=== PATIENT | male | born 1945 | race Caucasian/White ===

== ENCOUNTER 2020-02-05 09:45 | Day surgery (SDC) | payer MEDICARE ==
[~2020-02-05] VITALS: Ht 177.8 cm; Wt 122.7 kg
[2020-02-05 09:55] VITALS: BP 136/67
[2020-02-05] MEDS ORDERED: MIDAZolam 5mg/5ml vial ONE (10:16)
[2020-02-05] MEDS ORDERED: fentaNYL/PF 50MCG/1 ML 2ML syringe ONE (10:16)
[2020-02-05] MEDS ORDERED: WARF6TAB49 PO (10:35)
[2020-02-05] MEDS ORDERED: LISI1TAB51 PO (10:36)
[2020-02-05] MEDS ORDERED: FLEC50TA (10:36)
[2020-02-05] MEDS ORDERED: FURO40TA4 PO (10:37)
[2020-02-05] MEDS ORDERED: POTA8TAB3 PO (10:38)
[2020-02-05] MEDS ORDERED: ATOR-2 PO (10:39)
[2020-02-05] MEDS ORDERED: HYDR-4353 PO (10:40)
[2020-02-05] MEDS ORDERED: LORA-269 PO (10:40)
[2020-02-05] MEDS ORDERED: CEPH-194 (10:42)
[2020-02-05] MEDS ORDERED: SMZ PO (10:43)
[2020-02-05] MEDS ORDERED: TMP DS PO (10:43)
[2020-02-05] MEDS ORDERED: FLO0.4C PO (10:44)
[2020-02-05] MEDS ORDERED: CLIN30GE2 TOP (10:46)
[2020-02-05] MEDS ORDERED: DABI150C PO (10:47)
[2020-02-05] MEDS ORDERED: FERR236T3 PO (10:47)
[2020-02-05] MEDS ORDERED: ASCO500C17 PO (10:48)
[2020-02-05] MEDS ORDERED: OMEG-133 PO (10:49)
[2020-02-05] MEDS ORDERED: DOCU-21 PO (10:49)
[2020-02-05 10:50] VITALS: BP 124/70
[2020-02-05] MEDS ORDERED: DIPH25CA83 PO (10:50)
[2020-02-05] MEDS ORDERED: [UNRECOGNIZED DRUG - OTHER] (10:51)
[2020-02-05 11:00] VITALS: BP 119/56
[2020-02-05 11:10] VITALS: BP 119/56
[2020-02-05 11:20] VITALS: BP 128/60
== END 2020-02-05 12:00 | disposition home or self-care (01) ==
LOC: GI LAB 09:45
PROVIDERS: ATTEND Internal Medicine Gastroenterology
DX: Z12.11 Encounter for screening for malignant neoplasm of colon (principal); D12.3 Benign neoplasm of transverse colon; K57.30 Diverticulosis of large intestine without perforation or abscess without bleeding; K63.5 Polyp of colon; K62.1 Rectal polyp; Z86.010 Personal history of colon polyps
CPT/HCPCS: 45385; 99153; C1773; G0500; J2250; J3010; J7040; 99152; A4620